=== PATIENT | male | born 1990 | race African-American/Black ===

== ENCOUNTER 2017-09-13 15:11 | Emergency (ER) | payer BC, MEDICAID ==
[2017-09-13 15:18] VITALS: BP 109/55
[2017-09-13] MEDS ORDERED: PROCHLORPERAZINE EDISYLATE INJ 10 MG/2 ML VIAL IV ONE (15:39)
[2017-09-13] MEDS ORDERED: KETOROLAC TROMETHAMINE INJ/PF 30 MG/1 ML SDV IV ONE (15:39)
[2017-09-13] MEDS ORDERED: DIPHENHYDRAMINE HCL 50 MG/ML VIAL IV ONE (15:39)
[2017-09-13] MEDS ORDERED: ONDANSETRON 4 MG TAB.RAPDIS PO ONE (15:40)
--- NOTE | 2017-09-13 15:46 | ER Document Report ---
ED Medical Screen (RME) - General Chief Complaint: Sinus Pain Stated Complaint: NAUSEA, HEADACHE Time Seen by Provider: 09/13/17 15:39 TRAVEL OUTSIDE OF THE [place] IN LAST 30 DAYS: No - HPI Notes: 09/13/17 15:40 Patient is a 26-year-old male with a history of recurrent sinusitis who presents to the ED complaining of frontal and maxillary sinus pressure, nasal congestion/discharge, sinus headache times several days. Patient states that his sinus issues have exacerbated his migraine. Patient states that he has light sensitivity and nausea associated. Patient states that he has a history of migraines and that this feels like a another migraine for him with the added sinus pressure. Patient is still eating and drinking without any difficulties, and urinating and having normal bowel movements. He has used several over-the- counter meds including nasal saline with minimal relief. Patient states that he feels the pressure in his sinuses when he walks, turns his head, or bends forward. Patient states that this is the eighth time he has had sinusitis this year. Patient has not been evaluated by ENT this year when he was symptomatic so nothing was done per patient. 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 He denies any drug allergies or other significant past medical history. Denies any headache, fever, head injury , neck pain, sore throat, chest pain, palpitations, syncope, cough, shortness of breath, wheeze, dyspnea, abdominal pain, nausea/vomiting/diarrhea, urinary retention, dysuria, hematuria, loss of control of bowel or bladder, numbness/ tingling, muscle paralysis/weakness, or rash. I have treated and performed a rapid initial assessment of this patient. A comprehensive ED assessment and evaluation of the patient, analysis of test results and completion of medical decision making process will be conducted by additional ED providers. - Related Data Allergies/Adverse Reactions: No Known Allergies Allergy (Verified 09/13/17 15:11) Past Medical History - Immunizations Hx Diphtheria, Pertussis, Tetanus Vaccination: Yes Physical Exam - Vital signs Vitals: Temp Pulse Resp BP Pulse Ox 98.5 F 80 16 109/55 L 100 09/13/17 15:16 09/13/17 15:16 09/13/17 15:16 09/13/17 15:16 09/13/17 15:16 - HEENT Head: Normocephalic Eyes: Normal Conjunctiva: Normal Extraocular movements intact: Yes Pupils: PERRL Sinus: Swelling - mild b/l, Tenderness - maxillary and frontal Nasal: Other - clear to yellow Pharynx: Normal Neck: Normal - Respiratory Respiratory status: No respiratory distress Breath sounds: Normal - Cardiovascular Rhythm: Regular Heart sounds: Normal auscultation Course - Vital Signs Vital signs: Temp Pulse Resp BP Pulse Ox 98.5 F 80 16 109/55 L 100 09/13/17 15:16 09/13/17 15:16 09/13/17 15:16 09/13/17 15:16 09/13/17 15:16
[2017-09-13] MEDS ORDERED: KETOROLAC TROMETHAMINE INJ/PF 30 MG/1 ML SDV IM ONE (16:18)
--- NOTE | 2017-09-13 16:21 | ER Document Report ---
HPI - HPI Pain Level: 4 Notes: Patient is a 26-year-old male with a history of recurrent sinusitis who presents to the ED complaining of frontal and maxillary sinus pressure, nasal congestion/discharge, sinus headache times several days. Patient states that his sinus issues have exacerbated his migraine. Patient states that he has light sensitivity and nausea associated. Patient states that he has a history of migraines and that this feels like a another migraine for him with the added sinus pressure. Patient is still eating and drinking without any difficulties, and urinating and having normal bowel movements. He has used several over-the- counter meds including nasal saline with minimal relief. Patient states that he feels the pressure in his sinuses when he walks, turns his head, or bends forward. Patient states that this is the eighth time he has had sinusitis this year. Patient has not been evaluated by ENT this year when he was symptomatic so nothing was done per patient. 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 He denies any drug allergies or other significant past medical history. Denies any headache, fever, head injury , neck pain, sore throat, chest pain, palpitations, syncope, cough, shortness of breath, wheeze, dyspnea, abdominal pain, nausea/vomiting/diarrhea, urinary retention, dysuria, hematuria, loss of control of bowel or bladder, numbness/ tingling, muscle paralysis/weakness, or rash. - ROS Systems Reviewed and Negative: Yes All other systems reviewed and negative Past Medical History - Social History Smoking Status: Never Smoker Family History: Reviewed & Not Pertinent - Immunizations Hx Diphtheria, Pertussis, Tetanus Vaccination: Yes Vertical Provider Document - CONSTITUTIONAL Agree With Documented VS: Yes Notes: PHYSICAL EXAMINATION: GENERAL: Well-appearing, well-nourished and in no acute distress. A&Ox4. Answers questions appropriately. HEAD: Atraumatic, normocephalic. EYES: Pupils equal round and reactive to light, extraocular movements intact, sclera anicteric, conjunctiva are normal. ENT: EAC clear b/l. TM's intact b/l without erythema, fluid, or perforation. Nares patent and with clear/yellow discharge. oropharynx mild erythema without exudates. No tonsilar hypertrophy & without erythema or exudate. No palatine shift. Uvula midline. No tongue protrusion. No drooling, hoarseness, or airway compromise. Moist mucous membranes. + maxillary and frontal sinus tenderness. + illumination test. NECK: Normal range of motion, supple without lymphadenopathy. No rigidity/ meningismus. LUNGS: Breath sounds clear to auscultation bilaterally and equal. No wheezes rales or rhonchi. HEART: Regular rate and rhythm without murmurs, rubs, gallops. NEUROLOGICAL: MMSE intact. GCS 15. NIH 0. LAURA's intact. Pronator drift negative. Normal speech, normal gait. Normal sensory, motor exams PSYCH: Normal mood, normal affect. SKIN: Warm, Dry, normal turgor, no rashes or lesions noted. - INFECTION CONTROL TRAVEL OUTSIDE OF THE [place] IN LAST 30 DAYS: No - RESPIRATORY O2 Sat by Pulse Oximetry: 100 Course - Re-evaluation Re-evalutation: 09/13/17 16:19 Patient is an afebrile, well-hydrated, 18-year-old male who presents the ED with acute sinusitis as well as migraine. Vitals are stable. PE is otherwise unremarkable for any focal neurological deficits. Patient states that this migraine is typical of his past and previous migraines. Patient has an extensive sinus history and physical exam findings consistent with a probable bacterial sinusitis. Patient declined migraine cocktail today. Toradol given IM along with Zofran. I will send him home with another prescription for Zofran for recurrence of nausea as well as naproxen. Patient instructed that he may take Benadryl when he gets home as well. Low suspicion for any acute glaucoma, temporal arteritis, meningitis, intracranial hemorrhage, ischemic stroke, or fracture at this time. Patient is aware that his condition can change from initial presentation and that he needs to monitor symptoms closely for any acute changes. I will also send him home with a prescription for Augmentin to take as directed. Conservative measures otherwise for symptoms. Recheck with your PCM in 3-5 days. Return to the ED with any worsening/ concerning symptoms otherwise as reviewed discharge. Patient is in agreement. - Vital Signs Vital signs: Temp Pulse Resp BP Pulse Ox 98.5 F 80 16 109/55 L 100 09/13/17 15:16 09/13/17 15:16 09/13/17 15:16 09/13/17 15:16 09/13/17 15:16 Discharge - Discharge Clinical Impression: Acute sinusitis Qualifiers: Sinusitis location: maxillary Recurrence: recurrent Qualified Code(s): J01.01 - Acute recurrent maxillary sinusitis Headache Qualifiers: Headache type: unspecified Headache chronicity pattern: acute headache Intractability: not intractable Qualified Code(s): R51 - Headache Condition: Stable Disposition: HOME, SELF-CARE Instructions: Headache ([facility]), Migraine Headache ([facility]), Sinusitis ([facility]), Augmentin ([facility]) Additional Instructions: Maintain adequate fluid intake Take benadryl 50mg when you get home Take meds as directed tylenol/ibuprofen as needed over the counter cold medication as needed for symptoms Humidified air may help F/u: with your PCM in 3-5 days for a recheck Consider consult with a Neurologist Return to the ED with any fever, worsening pain, chest pain, palpitations, syncope, worsening HENRIQUEZ, neck pain/stiffness, shortness of breath, wheezing, drooling, trouble swallowing/breathing, abdominal pain, n/v/d, rash, or worsening/concerning symptoms otherwise. Prescriptions: Amox Tr/Potassium Clavulanate [Augmentin 875-125 Tablet] 1 tab PO BID 10 Days # 20 tablet Ondansetron [Zofran Odt 4 mg Tablet] 1 - 2 tab PO Q4H PRN #15 tab.rapdis PRN Reason: For Nausea/Vomiting Referrals: SULMA HOUSE MD [ACTIVE STAFF] - Follow up as needed
== END 2017-09-13 16:36 | disposition home or self-care (01) ==
LOC: ER 15:11
DX: J01.01 Acute recurrent maxillary sinusitis (principal); G43.909 Migraine, unspecified, not intractable, without status migrainosus; H53.149 Visual discomfort, unspecified; R11.0 Nausea; Z98.890 Other specified postprocedural states
CPT/HCPCS: 99283; S0119; J1885

== ENCOUNTER → 2018-09-08 | Outpatient (CLI) | payer OTHER ==
--- NOTE | 2018-09-09 08:56 | RADIOLOGY REPORT (SQ) ---
EXAM DESCRIPTION: CT SINUSES FOR ENT COMPLETED DATE/TIME: 09/08/2018 6:28 pm REASON FOR STUDY: CHRONIC SINUSITIS J32.9 CHRONIC SINUSITIS, UNSPECIFIED COMPARISON: None. TECHNIQUE: Noncontrast scanning through the paranasal sinuses using bone algorithm. Reconstructed MPR images reviewed. All images stored on PACS. Images acquired for image guided surgery. All CT scanners at this facility use dose modulation, iterative reconstruction, and/or weight based d osing when appropriate to reduce radiation dose to as low as reasonably achievable (ALARA). [facility]: Dose Right [facility]: CareDose [facility]: Dose Right [facility]: Teradose 4D [facility]: Qubrit RADIATION DOSE: 47 mGy. FINDINGS: NASAL PASSAGES: There is mild rightward nasal septal deviation and a moderate size right n shabnam septal spur, 7 mm in greatest transverse dimension. This is best shown on coronal reconstructio n image 96/387. There is nodular mucous membrane thickening along the anterior aspect of the left mi ddle turbinate, mucous membrane thickening measures 7 mm in thickness on axial images 36-43. OSTEOMEATAL UNITS AND MAXILLARY SINUSES: On the right side, the maxillary sinus outlet is narrowed by mucous membrane thickening and right-sided Anuja cells. This is best shown on coronal reconstructi on images 95 through 114. On the left side, there has been surgical widening of the maxillary outlet, and resection of the left mid ethmoid septa. Minimal mucous membrane thickening is present along th e roof of the left maxillary sinus. NASOFRONTAL DUCTS: Patent. ETHMOID SINUSES: Well-pneumatized and clear. On the left side, there is been prior endoscopic sinus surgery with resection of the mid ethmoid septa. SPHENOID SINUSES: Well-pneumatized and clear. No sphenoethmoid air cells or pneumatized pterygoid rec ess. No pneumatized dorsal sella. FRONTAL SINUSES: Well pneumatized. Mucous membrane thickening right fronto ethmoid junction. MASTOID AIR CELLS: Clear. ORBITS: Normal and symmetrical. TEMPOROMANDIBULAR JOINTS: Normal. TURBINATES: Pneumatized right middle turbinate. MUCOPERIOSTEAL THICKENING: No. MUCOCELE: No. OTHER: No other significant findings. IMPRESSION: Prior endoscopic sinus surgery with nodular mucous membrane thickening along the anterio r aspect of the left middle turbinate TECHNICAL DOCUMENTATION: JOB ID: [id number] Quality ID # [id number]: Final reports with documentation of one or more dose reduction techniques (e.g., Au tomated exposure control, adjustment of the mA and/or kV according to patient size, use of iterative reconstruction technique) 2010 [employer]- All Rights Reserved Reading location - IP/workstation name: [email or web address]
== END ==
LOC: RAD 17:32
PROVIDERS: ATTEND Otolaryngology
DX: J32.9 Chronic sinusitis, unspecified (principal)
CPT/HCPCS: 70486

== ENCOUNTER 2018-10-06 09:52 | Emergency (ER) | payer OTHER, MEDICAID ==
[2018-10-06] MEDS ORDERED: KETOROLAC TROMETHAMINE INJ/PF 30 MG/1 ML SDV IV ONE (10:21)
[2018-10-06] MEDS ORDERED: DIAZEPAM 5 MG TABLET PO ONE (10:22)
--- NOTE | 2018-10-06 10:24 | ER Document Report ---
ED Medical Screen (RME) - General Chief Complaint: Flank Pain Stated Complaint: ABDOMINAL PAIN Time Seen by Provider: 10/06/18 10:18 Primary Care Provider: OLGA FERRO MD [Primary Care Provider] - Follow up as needed Notes: Chief complaint: Right flank pain History of complain:( obtained from----patient) 28 years old male presents today with right flank pain since last night. Pain was radiating towards the groin. Any movement of the body increases the pain. Standing and bend over somewhat helps with the pain. Denies any hematuria dysuria frequency or urgency. Last Wednesday he had a temperature only one time. Since then did not have any fever chills nausea vomiting. PHYSICAL EXAMINATION: GENERAL: Moderate discomfort acute distress. HEAD: Atraumatic, normocephalic. EYES: Pupils equal round and reactive to light, extraocular movements intact, conjunctiva are normal. ENT: Nares patent, oropharynx clear without exudates. Moist mucous membranes. NECK: Normal range of motion, supple without lymphadenopathy LUNGS: Breath sounds clear to auscultation bilaterally and equal. No wheezes rales or rhonchi. HEART: Regular rate and rhythm without murmurs ABDOMEN: Soft, right lower quadrant tenderness noted , nondistended abdomen. No guarding, no rebound. No masses appreciated. Examination of genitals-deferred Musculoskeletal: Sharp muscular tenderness noted over the right flank, NEUROLOGICAL: Cranial nerves grossly intact. Normal speech, normal gait. Normal sensory, motor exams PSYCH: Normal mood, normal affect. SKIN: Warm, Dry, normal turgor, no rashes or lesions noted. Dictation was performed using [employer] voice recognition software TRAVEL OUTSIDE OF THE [place] IN LAST 30 DAYS: No - Related Data Allergies/Adverse Reactions: No Known Allergies Allergy (Verified 10/06/18 09:53) Past Medical History - Immunizations Hx Diphtheria, Pertussis, Tetanus Vaccination: Yes Physical Exam - Vital signs Vitals: Temp Pulse Resp BP Pulse Ox 98.8 F 96 19 130/77 H 95 10/06/18 09:56 10/06/18 09:56 10/06/18 09:56 10/06/18 09:56 10/06/18 09:56 Course - Vital Signs Vital signs: Temp Pulse Resp BP Pulse Ox 98.8 F 96 19 130/77 H 95 10/06/18 09:56 10/06/18 09:56 10/06/18 09:56 10/06/18 09:56 10/06/18 09:56 Doctor's Discharge - Discharge Referrals: OLGA FERRO MD [Primary Care Provider] - Follow up as needed
[2018-10-06 11:18] LABS: ABSOLUTE BASOPHILS # (AUTO) 0.1 10^3/uL (0.0-0.2); ABSOLUTE EOSINOPHILS # (AUTO) 0.1 10^3/uL (0.0-0.6); ABSOLUTE LYMPHOCYTES (AUTO) 1.7 10^3/uL (0.5-4.7); ABSOLUTE MONOCYTES (AUTO) 0.7 10^3/uL (0.1-1.4); ABSOLUTE NEUT (AUTO) 7.4 10^3/uL (1.7-8.2); BASOPHILS % (AUTO) 0.7 % (0-2); EOSINOPHILS % (AUTO) 1.3 % (0-6); HEMOGLOBIN 15.4 g/dL (13.5-17.0); LYMPHOCYTES % (AUTO) 16.8 % (13-45); MEAN CORPUSCULAR HEMOGLOBIN 31.2 pg (27.0-33.4); MEAN CORPUSCULAR HGB CONC 35.7 g/dL (32.0-36.0); MEAN CORPUSCULAR VOLUME 87 fl (80-97); MONOCYTES % (AUTO) 6.7 % (3-13); PLATELET COUNT 322 10^3/uL (150-450); RED BLOOD COUNT 4.92 10^6/uL (4.35-5.55); RED CELL DISTRIBUTION WIDTH 13.1 % (11.5-14.0); SEGMENTED NEUTROPHILS % (AUTO) 74.5 % (42-78); TOTAL CELLS COUNTED % (AUTO) 100 %; WHITE BLOOD COUNT 9.9 10^3/uL (4.0-10.5)
[2018-10-06 11:27] LABS: APPEARANCE,URINE SLIGHTLY-CLOUDY; BILIRUBIN,URINE NEGATIVE (NEGATIVE); COLOR,URINE STRAW; GLUCOSE, URINE NEGATIVE (NEGATIVE); KETONES,URINE NEGATIVE (NEGATIVE); LEUKOCYTE ESTERASE,URINE LARGE (NEGATIVE); NITRITE,URINE NEGATIVE (NEGATIVE); PROTEIN,URINE NEGATIVE (NEGATIVE); URINE SPECIFIC GRAVITY 1.004; UROBILINOGEN,URINE NEGATIVE mg/dL (<2.0)
[2018-10-06 11:35] LABS: ALANINE AMINOTRANSFERASE 139 U/L (21-72); ALKALINE PHOSPHATASE 126 U/L (38-126); ASPARTATE AMINO TRANSFERASE 75 U/L (17-59); BILIRUBIN,DIRECT 0.1 mg/dL (0.0-0.4); BILIRUBIN,TOTAL 0.6 mg/dL (0.2-1.3); BLOOD UREA NITROGEN 4 mg/dL (7-20); CARBON DIOXIDE 29 mmol/L (22-30); GLUCOSE 89 mg/dL (75-110); NEONATAL BILIRUBIN RESULT 0.5 mg/dL (0.1-1.1); POTASSIUM 4.4 mmol/L (3.6-5.0); TOTAL PROTEIN 8.2 g/dL (6.3-8.2)
[2018-10-06 11:37] LABS: ANION GAP 11 (5-19); CHLORIDE 101 mmol/L (98-107); SODIUM 140.8 mmol/L (137-145)
--- NOTE | 2018-10-06 11:49 | RADIOLOGY REPORT (SQ) ---
EXAM DESCRIPTION: CT ABD/PELVIS WITH IV ONLY COMPLETED DATE/TIME: 10/06/2018 11:23 am REASON FOR STUDY: Flank pain COMPARISON: None. TECHNIQUE: CT scan of the abdomen and pelvis performed using helical scanning technique with dynamic intravenous contrast injection. No oral contrast. Images reviewed with lung, soft tissue, and bone windows. Reconstructed coronal and sagittal MPR images reviewed. Delayed images for evaluation of the urinary system also acquired. All images stored on PACS. All CT scanners at this facility use dose modulation, iterative reconstruction, and/or weight based d osing when appropriate to reduce radiation dose to as low as reasonably achievable (ALARA). [facility]: Dose Right [facility]: CareDose [facility]: Dose Right [facility]: Teradose 4D [facility]: Prenova CONTRAST TYPE AND DOSE: contrast/concentration: Isovue 350.00 mg/ml; Total Contrast Delivered: 100.0 ml; Total Saline Delivered: 70.0 ml RENAL FUNCTION: None required. The patient is less than 50 years old. RADIATION DOSE: CT Rad equipment meets quality standard of care and radiation dose reduction techniq ues were employed. CTDIvol: 6.4 - 8.9 mGy. DLP: 846 mGy-cm.. LIMITATIONS: None. FINDINGS: LOWER CHEST: No significant findings. No nodules or infiltrates. LIVER: Normal size. No masses. No dilated ducts. SPLEEN: Normal size. No focal lesions. PANCREAS: No masses. No significant calcifications. No adjacent inflammation or peripancreatic fluid collections. Pancreatic duct not dilated. GALLBLADDER: No identified stones by CT criteria. No inflammatory changes to suggest cholecystitis. ADRENAL GLANDS: No significant masses or asymmetry. RIGHT KIDNEY AND URETER: No solid masses. No significant calcifications. No hydronephrosis or hyd roureter. LEFT KIDNEY AND URETER: No solid masses. No significant calcifications. No hydronephrosis or hydr oureter. AORTA AND VESSELS: No aneurysm. No dissection. Renal arteries, SMA, celiac without stenosis. RETROPERITONEUM: No retroperitoneal adenopathy, hemorrhage or masses. BOWEL AND PERITONEAL CAVITY: No masses or inflammatory changes. No free fluid or peritoneal masses. APPENDIX: Normal. PELVIS: No mass. No free fluid. Normal bladder. ABDOMINAL WALL: No masses. No hernias. BONES: No significant or acute findings. OTHER: No other significant finding. IMPRESSION: NO SIGNIFICANT OR ACUTE FINDING IN THE ABDOMEN OR PELVIS ON CT SCAN WITH IV CONTRAST. TECHNICAL DOCUMENTATION: JOB ID: [id number] Quality ID # [id number]: Final reports with documentation of one or more dose reduction techniques (e.g., Au tomated exposure control, adjustment of the mA and/or kV according to patient size, use of iterative reconstruction technique) 2010 [employer]- All Rights Reserved Reading location - IP/workstation name: [email or web address]
[2018-10-06] MEDS ORDERED: CEFTRIAXONE 1 GM/D5W RTU 1 GM/50 ML RTUPB IV ONE (11:57)
[2018-10-06] MEDS ORDERED: DOXYCYCLINE HYCLATE 100 MG TABLET PO ONE (11:58)
--- NOTE | 2018-10-06 12:35 | ER Document Report ---
ED General - General Chief Complaint: Flank Pain Stated Complaint: ABDOMINAL PAIN Time Seen by Provider: 10/06/18 10:18 Primary Care Provider: OLGA FERRO MD [ACTIVE STAFF] - Follow up as needed TRAVEL OUTSIDE OF THE [place] IN LAST 30 DAYS: No - HPI Patient complains to provider of: Lower abdominal pain flank pain Notes: Patient states approximate 24-48 hours ago the patient was having intercourse with his when the condom that he was using broke patient pulled out before he ejaculated held onto his penis afterwards experienced intense pain while holding his penis during the ejaculation in the suprapubic lower abdominal region and continues to have pain. Patient denies any dysuria denies any drainage from his penis. Patient denies any pain in his testicles denies any fevers chills nausea vomiting today but does state approximately 2 days ago after this occurred patient did feel weak with no energy. Patient resting healthy upon my evaluation. - Related Data Allergies/Adverse Reactions: No Known Allergies Allergy (Verified 10/06/18 09:53) Past Medical History - Social History Smoking Status: Current Every Day Smoker Chew tobacco use (# tins/day): No Frequency of alcohol use: None Drug Abuse: None Family History: Reviewed & Not Pertinent Patient has suicidal ideation: No Patient has homicidal ideation: No Renal/ Medical History: Denies: Hx Peritoneal Dialysis - Immunizations Hx Diphtheria, Pertussis, Tetanus Vaccination: Yes Review of Systems - Review of Systems Constitutional: No symptoms reported EENT: No symptoms reported Cardiovascular: No symptoms reported Respiratory: No symptoms reported Gastrointestinal: Abdominal pain Genitourinary: No symptoms reported Male Genitourinary: No symptoms reported Musculoskeletal: No symptoms reported Skin: No symptoms reported Hematologic/Lymphatic: No symptoms reported Neurological/Psychological: No symptoms reported -: Yes All other systems reviewed and negative Physical Exam - Vital signs Vitals: Temp Pulse Resp BP Pulse Ox 98.8 F 96 19 130/77 H 95 10/06/18 09:56 10/06/18 09:56 10/06/18 09:56 10/06/18 09:56 10/06/18 09:56 Interpretation: Normal - General General appearance: Appears well, Alert - HEENT Head: Normocephalic, Atraumatic Eyes: Normal Pupils: PERRL - Respiratory Respiratory status: No respiratory distress Chest status: Nontender Breath sounds: Normal Chest palpation: Normal - Cardiovascular Rhythm: Regular Heart sounds: Normal auscultation Murmur: No - Abdominal Inspection: Normal Distension: No distension Bowel sounds: Normal Tenderness: Nontender Organomegaly: No organomegaly - Back Back: Normal, Nontender - Extremities General upper extremity: Normal inspection, Nontender, Normal color, Normal ROM, Normal temperature General lower extremity: Normal inspection, Nontender, Normal color, Normal ROM, Normal temperature, Normal weight bearing. No: Scout's sign - Neurological Neuro grossly intact: Yes Cognition: Normal Orientation: AAOx4 Kandace Coma Scale Eye Opening: Spontaneous [place] Coma Scale Verbal: Oriented Kandace Coma Scale Motor: Obeys Commands Kandace Coma Scale Total: 15 Speech: Normal Motor strength normal: LUE, RUE, LLE, RLE Sensory: Normal - Psychological Associated symptoms: Normal affect, Normal mood - Skin Skin Temperature: Warm Skin Moisture: Dry Skin Color: Normal Course - Re-evaluation Re-evalutation: 10/06/18 15:02 Physical examination is not revealing critical pathology. Patient underwent CT scan that was otherwise negative. Urinalysis does show signs concerning for possible infection. Patient was given a dose of Rocephin here patient was started on doxycycline did explain to the patient possible prostatitis versus urinary tract infection patient was offered STD testing however states he is a monogamous relationship and is not concerned for any STDs at this time declined testing - Vital Signs Vital signs: Temp Pulse Resp BP Pulse Ox 98.9 F 89 18 130/80 H 99 10/06/18 12:53 10/06/18 12:53 10/06/18 12:53 10/06/18 12:53 10/06/18 12:53 - Laboratory Result Diagrams: 10/06/18 10:52 10/06/18 10:52 Laboratory results interpreted by me: 10/06/18 10/06/18 10:52 10:52 BUN 4 L AST 75 H ALT 139 H Urine Blood LARGE H Ur Leukocyte Esterase LARGE H Discharge - Discharge Clinical Impression: UTI (urinary tract infection) Qualifiers: Urinary tract infection type: site unspecified Hematuria presence: with hematuria Qualified Code(s): N39.0 - Urinary tract infection, site not specified Disposition: HOME, SELF-CARE Instructions: Doxycycline ([facility]), Urinary Tract Infection ([facility]) Additional Instructions: Your evaluation today shows signs of urinary tract infection your CAT scan is otherwise negative for any signs of acute surgical pathology such as appendicitis or acute cholecystitis. I highly recommend sticking with a bland diet please take the antibiotics as prescribed return to the ER if symptoms worsen he may take the Zofran for any nausea that she may have Tylenol Motrin for pain. Prescriptions: Doxycycline Hyclate 100 mg PO BID #20 capsule Ondansetron [Zofran Odt 4 mg Tablet] 1 - 2 tab PO Q4H PRN #30 tab.rapdis PRN Reason: For Nausea/Vomiting Forms: Return to Work Referrals: OLGA FERRO MD [ACTIVE STAFF] - Follow up as needed
[2018-10-06 12:55] VITALS: BP 130/80
[2018-10-07] MEDS ORDERED: DILTIAZEM HCL/D5W 125 MG/125 ML RTUINJ IV PRN (01:14)
== END 2018-10-06 12:55 | disposition home or self-care (01) ==
LOC: ER 09:52
DX: N39.0 Urinary tract infection, site not specified (principal); R31.9 Hematuria, unspecified; R10.30 Lower abdominal pain, unspecified; F17.200 Nicotine dependence, unspecified, uncomplicated
CPT/HCPCS: 99284; 96375; 96365; 36415; 85025; 80053; 81001; 74177; J1885; J0696

== ENCOUNTER → 2018-10-17 | Outpatient (CLI) | payer OTHER, MEDICAID | LOC: OD 12:58 | PROVIDERS: ATTEND Otolaryngology | DX: R09.82 Postnasal drip (principal) | CPT/HCPCS: 36415; 82785; 86003 ==

== ENCOUNTER 2018-10-29 16:22 | Emergency (ER) | payer OTHER, MEDICAID ==
[2018-10-29] MEDS ORDERED: DIPH/PERTUSS(ACELL)/TETANUS VAC/PF 0.5 ML SYR (>=10YO) IM ONE (16:57)
[2018-10-29] MEDS ORDERED: IBUPROFEN 800 MG TABLET PO ONE (16:57)
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
[2018-10-29 19:45] VITALS: BP 129/76
== END 2018-10-29 19:35 | disposition home or self-care (01) ==
LOC: ER 16:22
DX: S63.602A Unspecified sprain of left thumb, initial encounter (principal); S73.102A Unspecified sprain of left hip, initial encounter; S16.1XXA Strain of muscle, fascia and tendon at neck level, initial encounter; S39.012A Strain of muscle, fascia and tendon of lower back, initial encounter; S50.812A Abrasion of left forearm, initial encounter; M25.542 Pain in joints of left hand; M25.552 Pain in left hip; M54.2 Cervicalgia; M26.622 Arthralgia of left temporomandibular joint; V43.52XA Car driver injured in collision with other type car in traffic accident, initial encounter; F17.200 Nicotine dependence, unspecified, uncomplicated
CPT/HCPCS: 70486; 72070; 72110; 72125; 99284

== ENCOUNTER 2018-10-29 22:20 | Emergency (ER) | payer OTHER, MEDICAID ==
[2018-10-30] MEDS ORDERED: ONDANSETRON ODT 4 MG TAB (6 TAB/ER DISP) PO PRN (00:46)
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
[2018-10-30 01:16] VITALS: BP 116/80
== END 2018-10-30 01:15 | disposition home or self-care (01) ==
LOC: ER 22:20
DX: S06.0X0A Concussion without loss of consciousness, initial encounter (principal); V49.60XA Unspecified car occupant injured in collision with unspecified motor vehicles in traffic accident, initial encounter; R42 Dizziness and giddiness; R11.0 Nausea; R51 Headache; H53.149 Visual discomfort, unspecified
CPT/HCPCS: 99283

== ENCOUNTER → 2018-12-08 | Outpatient (CLI) | payer OTHER ==
--- NOTE | 2018-12-09 08:28 | RADIOLOGY REPORT (SQ) ---
EXAM DESCRIPTION: CT SINUSES FOR ENT COMPLETED DATE/TIME: 12/08/2018 5:00 pm REASON FOR STUDY: J32.9 CHRONIC SINUSITIS, UNSPECIFIED J32.9 CHRONIC SINUSITIS, UNSPECIFIED COMPARISON: CT facial bones 10/29/2018 TECHNIQUE: Noncontrast scanning through the paranasal sinuses using bone algorithm. Reconstructed MPR images reviewed. All images stored on PACS. Images acquired for image guided surgery. All CT scanners at this facility use dose modulation, iterative reconstruction, and/or weight based d osing when appropriate to reduce radiation dose to as low as reasonably achievable (ALARA). [facility]: Dose Right [facility]: CareDose [facility]: Dose Right [facility]: Teradose 4D [facility]: [place] RADIATION DOSE: 47 mGy. FINDINGS: NASAL PASSAGES: Clear. No polyps or masses. OSTEOMEATAL UNITS AND NASOFRONTAL DUCTS: On the right side, the maxillary sinus outlet is narrowed by right rib nasal septal deviation and a small right Anuja cell best shown on coronal reconstruction image 19. There is mucous membrane thickening without occlusion. On the left side, patient has had endoscopic sinus surgery with resection of the ostiomeatal complex mid ethmoid air cells. No agger na si cells. MAXILLARY SINUSES: Well-pneumatized and clear. Maxillary sinus outlets are patent. ETHMOID SINUSES: Well-pneumatized and clear. SPHENOID SINUSES: Well-pneumatized and clear. No sphenoethmoid air cells or pneumatized pterygoid rec ess. No pneumatized dorsal sella. FRONTAL SINUSES: Well-pneumatized and clear. MASTOID AIR CELLS: Clear. ORBITS: Normal and symmetrical. NASAL SEPTUM: Rightward nasal septal deviation with small rightward nasal septal spur TEMPOROMANDIBULAR JOINTS: Normal. TURBINATES: No pneumatized turbinates. MUCOPERIOSTEAL THICKENING: No. MUCOCELE: No. OTHER: There is pneumatization of the right petrous apex IMPRESSION: NO EVIDENCE OF ACUTE SINUSITIS. TECHNICAL DOCUMENTATION: JOB ID: [id number] Quality ID # [id number]: Final reports with documentation of one or more dose reduction techniques (e.g., Au tomated exposure control, adjustment of the mA and/or kV according to patient size, use of iterative reconstruction technique) 2010 [employer]- All Rights Reserved Reading location - IP/workstation name: [facility]
== END ==
LOC: RAD 16:08
PROVIDERS: ATTEND Otolaryngology
DX: J32.9 Chronic sinusitis, unspecified (principal); J34.2 Deviated nasal septum; M77.8 Other enthesopathies, not elsewhere classified
CPT/HCPCS: 70486

== ENCOUNTER 2019-01-30 07:43 | Day surgery (SDC) | payer MEDICAID, OTHER ==
[~2019-01-30 07:43] MED LIST: CEFAZOLIN 2 GM/D5W RTU 2 GM/50 ML RTUPB IV PRN; LACTATED RINGERS 1000 ML IV PRN; LIDOCAINE 0.5% INJ-PF (5 MG/ML) 50 ML SDV SUBCUT PRN
[2019-01-30] MEDS ORDERED: ONDANSETRON HCL INJ/PF 4 MG/2 ML SDV ONE (09:10)
[2019-01-30] MEDS ORDERED: MIDAZOLAM 2 MG/2 ML INJ ONE (09:11)
[2019-01-30] MEDS ORDERED: PROPOFOL INJ 200 MG/20 ML VIAL IV ONE (09:11)
[2019-01-30] MEDS ORDERED: DEXAMETHASONE SOD PHOS INJ 10 MG/1 ML VIAL ONE (09:11)
[2019-01-30] MEDS ORDERED: FENTANYL CITRATE INJ/PF 250 MCG/5 ML AMPULE ONE (09:11)
[2019-01-30] MEDS ORDERED: MORPHINE SULFATE 10 MG/ML INJ ONE (09:11)
[2019-01-30] MEDS ORDERED: SUCCINYLCHOLINE CHLORIDE INJ 200 MG/10 ML VIAL ONE (09:12)
[2019-01-30] MEDS ORDERED: ROCURONIUM BROMIDE INJ 50 MG/5 ML VIAL IV ONE (09:12)
[2019-01-30] MEDS ORDERED: BUPIVACAINE HCL 0.5%-EPI 1:200000 INJ/PF 30 ML VIAL ONE (09:18)
[2019-01-30] MEDS ORDERED: BUPIVACAINE HCL 0.5%/EPI 1:200000 INJ 1.8 ML CARTRIDGE ONE (09:19)
[2019-01-30] MEDS ORDERED: MINERAL OIL (STERILE) 10 ML VIAL ONE (09:22)
[2019-01-30] MEDS ORDERED: SCOPOLAMINE HYDROBROMIDE 1.5 MG PATCH.TD72 TD ONE (09:30)
[2019-01-30] MEDS: OXYMETAZOLINE HCL 0.05% NASAL SPRAY 15 ML BOTTLE ONE ×3 (10:16→11:15)
--- NOTE | 2019-02-05 05:19 | SURGICARE OPERATIVE REPORT E ---
[facility] Operative Report NAME: ANITA MACK AGE: 28Y DATE OF SURGERY: 01/30/2010 ROOM: PREOPERATIVE DIAGNOSES: 1. CHRONIC RHINOSINUSITIS WITH NASAL POLYP DISEASE. 2. ACUTE RECURRENT SINUSITIS. 3. SINONASAL POLYP DISEASE. 4. NASAL SEPTAL DEVIATION. 5. BILATERAL CHRONIC EUSTACHIAN TUBE DYSFUNCTION. 6. SEPTAL SPUR. 7. MIDDLE TURBINATE HYPERTROPHY. 8. INFERIOR TURBINATE HYPERTROPHY. 9. RIGHT TOSHIA BULLOSA. POSTOPERATIVE DIAGNOSES: 1. CHRONIC RHINOSINUSITIS WITH NASAL POLYP DISEASE. 2. ACUTE RECURRENT SINUSITIS. 3. SINONASAL POLYP DISEASE. 4. NASAL SEPTAL DEVIATION. 5. BILATERAL CHRONIC EUSTACHIAN TUBE DYSFUNCTION. 6. SEPTAL SPUR. 7. MIDDLE TURBINATE HYPERTROPHY. 8. INFERIOR TURBINATE HYPERTROPHY. 9. RIGHT TOSHIA BULLOSA. OPERATION: 1. Image-guidance functional endoscopic sinus surgery as follows: 2. Right maxillary antrostomy with tissue removal for rule out polyp disease. 3. Right anterior ethmoidectomy with tissue removal for rule out polyp disease. 4. Left revision sinus surgery with sinonasal polyp removal from the left nasal passage, right maxillary antrostomy, and right anterior ethmoidectomy areas where previous sinus surgery had been performed. 5. Bilateral frontal sinus balloon sinuplasty, which was utilized prior to performing bilateral frontal sinus sinusotomies. 6. Bilateral sphenoid balloon sinuplasty. 7. Bilateral eustachian tube balloon plasty, which [place]; [place] [address], and to be associated with this is CPT code 90631, which was performed bilateral, and CPT code 09223 for bilateral transnasal rigid surgical endoscopy. 8. Right toshia bullosa reduction. 9. Left middle turbinate reduction. 10. Bilateral inferior turbinate reduction using a submucous resection technique. 11. Septoplasty. 12. Bilateral adenoid tissue and mathieu tissue ablation with suction electrocautery. SURGEON: ALEX PASTRANA D.O. ANESTHESIA: General endotracheal tube. ANESTHESIA STAFF: DENISHA Gardner ESTIMATED BLOOD LOSS: 100 mL FLUIDS: 900 mL COMPLICATIONS: None. DRAINS: None. SPONGE COUNT: Verified. MATERIALS FORWARDED SPECIMEN: Left and right maxillary and anterior ethmoid polyp tissue for rule out sinonasal polyp disease. FINDINGS: 1. Right nasal septal deviation involving bone and cartilage along with a very large septal spur. 2. Left middle turbinate hypertrophy with polypoid changes and polyps surrounding the left middle turbinate, OMC distribution, and polyp disease extension into the left maxillary antrostomy and left anterior ethmoidectomy distributions. 3. Right toshia bullosa. 4. Mathieu hypertrophy and adenoid tissue hypertrophy adjacent the mathieu. INDICATIONS: This is a 28-year-old -[place] male who was seen and evaluated in the [place] otolaryngology office. The patient had been referred for, and he complained of, a longstanding history of chronic rhinosinusitis and acute recurrent bacterial sinusitis episodes occurring each year, requiring antibiotic treatment over the years. The patient had previously undergone sinus surgery on the left consisting of maxillary and anterior ethmoid sinus surgery. However, over the years the patient's sinus disease difficulties have worsened. The patient had been referred for further ENT evaluation and upon CT sinus imaging and clinic flexible endoscopy, the patient was noted to be again with extensive sinonasal polyp disease. There was extensive discussion with the patient, who has again experienced difficult nasal airflow, decreased quality of life due to his sinonasal disease, and he again desires to undergo surgery to improve sinonasal function and gaining control of his polyp disease, as he continues to fail medical management. After extensive discussion with the patient, recommendation and plan was made for image-guidance, primary and revision functional endoscopic sinus surgery, septoplasty, bilateral eustachian tube balloon plasty, middle and inferior turbinate surgery, and removal of sinonasal polyps, all of which he voiced an understanding of and agreed with. The procedures and all of their risks and complications were all discussed in detail with the patient. He voiced an understanding, agreed to proceed, and consent was obtained. PROCEDURE: The patient was taken to the main operating room and placed on the operating room table in the supine position. Appropriate monitors were placed. Using mask and IV access, general anesthesia was induced. The patient was then prepped and positioned for sinonasal surgery. He underwent a nasal examination with injection of local anesthetic with epinephrine. Two Afrin-soaked neuro patties were placed per nasal passage. The patient was then prepped and draped in a sterile fashion for sinonasal surgery. The [employer] OTR image guidance system was set up and tested appropriately before beginning the case. The Afrin-soaked neuro patties were removed and the patient underwent a hemitransfixion incision with elevation of the mucoperichondrial and mucoperiosteal flaps without difficulty. The bony cartilaginous junction was identified and divided and the most deviated portions of the septal cartilage and bone were removed without difficulty. A V chisel was used to remove the large and extensive right septal spur. During this process, there was a right-sided mucosal rent. There was a greater than 1.5 x 1.5 cm cartilaginous L strut preserved. At this point, the 30-degree rigid endoscope was used in a transnasal surgical fashion along with the eustachian tube balloon system to pass the eustachian tube balloon into each eustachian tube, and the balloon was inflated to 12 atmospheres on each side and held in place for 2 minutes per side. Once complete, the eustachian tube balloon system was withdrawn. Due to the adenoid tissue hypertrophy and mathieu hypertrophy, the suction electrocautery unit was also used to perform adenoid tissue ablation and ablation of the cuff of the mathieu away from the actual eustachian tube openings. At this point, the turbinate bipolar wand was used to make 2 passes in each inferior turbinate followed by use of the [place] elevator to outfracture each inferior turbinate. Next, the turbinate microdebrider system at a setting of 1500 rpm was used to perform submucous resection on each side. At this point, the sinus surgery portion of the case was addressed in the following manner. There was bilateral transnasal rigid surgical endoscopy throughout this portion of the case, along with use of sinus surgical instruments and the microdebrider system at a setting of 3000 rpm were used to debulk the left-sided sinonasal polyp disease. Once complete, the previously established left maxillary antrostomy and left anterior ethmoidectomy appeared stable and essentially unremarkable and patent. The left middle turbinate was debulked along with the anterior portion resected. A straight Coni clamp had been used first to create controlled fractures in the left middle turbinate prior to working on it. Attention was turned to the right sinonasal distribution. A straight Coni clamp was used to create controlled fractures and reduce the right toshia bullosa. Next, the anterior portion was removed of the right toshia bullosa/middle turbinate. The uncinate process was mobilized and removed followed by performing the right maxillary antrostomy without difficulty. The right anterior ethmoidectomy was completed. At this point, the frontal sinus balloon sinuplasty system, that was a [employer] Fusion image guidance balloon system, was passed on the left and right side and inflated to 12 atmospheres. Once complete, the sinus frontal recess area was evaluated and there was questionable patency. At this point, formal frontal sinus sinusotomies were performed with frontal sinus instrumentation without difficulty. There was reasonable patency noted on each side. At this point, the sphenoid [employer] Fusion image guidance balloon system was used to perform bilateral sphenoid sinus balloon sinuplasty. Once complete, the sphenoid balloon system was withdrawn. At this point, the nose was thoroughly irrigated and suctioned. There was 5-0 chromic suture used to repair the right mucosal rent without difficulty. Previously removed septal cartilage was placed back between the mucosal flaps to be banked. The flaps were brought back in the midline and the hemitransfixion incision was reapproximated with 5-0 chromic suture. At this point, the patient had 1 modified Merocel pack placed per side and a right modified Mckeon splint placed, and these were all secured at the caudal aspect with 4-0 Prolene suture. The patient's nose was then cleaned and dried and he was returned to the Anesthesia staff and allowed to emerge from general anesthesia. The patient was extubated in the main operating room and was then transported to the postanesthesia recovery unit in stable condition. There were no complications. DICTATING PHYSICIAN: ALEX PASTRANA D.O. [id number] PHY#: [id number] ID: [id number] JOB#: [id number] ACCT: [id number] cc:ALEX PASTRANA D.O. >
== END 2019-01-30 15:12 | disposition home or self-care (01) ==
LOC: SC 07:43
PROVIDERS: ATTEND Otolaryngology
DX: J32.9 Chronic sinusitis, unspecified (principal); J01.90 Acute sinusitis, unspecified; J33.8 Other polyp of sinus; J34.2 Deviated nasal septum; J34.3 Hypertrophy of nasal turbinates; R06.09 Other forms of dyspnea; R09.82 Postnasal drip; J34.89 Other specified disorders of nose and nasal sinuses; H69.83 Other specified disorders of Eustachian tube, bilateral; G43.909 Migraine, unspecified, not intractable, without status migrainosus; J35.2 Hypertrophy of adenoids; M27.0 Developmental disorders of jaws; Z87.891 Personal history of nicotine dependence
CPT/HCPCS: 88305 ×2; 00160; 30140; 30520; 42831; 31240; 31256; 31254; 69799; 31237; 31297; J2250; J3490 ×5; J3010; J2270; J0330; J2405; J2704; J1100; J0690; 160

== ENCOUNTER 2019-05-23 12:44 | Emergency (ER) | payer OTHER, MEDICAID ==
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
--- NOTE | 2019-05-23 14:03 | RADIOLOGY REPORT (SQ) ---
EXAM DESCRIPTION: CHEST 2 VIEWS COMPLETED DATE/TIME: 05/23/2019 1:53 pm REASON FOR STUDY: Short of breath difficulty breathing since yesterd COMPARISON: 07/05/2015. EXAM PARAMETERS: NUMBER OF VIEWS: two views TECHNIQUE: Digital Frontal and Lateral radiographic views of the chest acquired. RADIATION DOSE: NA LIMITATIONS: none FINDINGS: LUNGS AND PLEURA: No opacities, masses or pneumothorax. No pleural effusion. MEDIASTINUM AND HILAR STRUCTURES: No masses or contour abnormalities. HEART AND VASCULAR STRUCTURES: Heart normal size. No evidence for failure. BONES: No acute findings. HARDWARE: None in the chest. OTHER: No other significant finding. IMPRESSION: NO ACUTE RADIOGRAPHIC FINDING IN THE CHEST. TECHNICAL DOCUMENTATION: JOB ID: [id number] [employer]- All Rights Reserved Reading location - IP/workstation name: [email or web address]
[2019-05-23 15:09] LABS: ABSOLUTE BASOPHILS # (AUTO) 0.1 10^3/uL (0.0-0.2); ABSOLUTE EOSINOPHILS # (AUTO) 0.6 10^3/uL (0.0-0.6); ABSOLUTE LYMPHOCYTES (AUTO) 2.8 10^3/uL (0.5-4.7); ABSOLUTE MONOCYTES (AUTO) 0.7 10^3/uL (0.1-1.4); ABSOLUTE NEUT (AUTO) 6.1 10^3/uL (1.7-8.2); BASOPHILS % (AUTO) 0.9 % (0-2); EOSINOPHILS % (AUTO) 6.2 % (0-6); HEMATOCRIT 43.6 % (37.9-51.0); HEMOGLOBIN 15.2 g/dL (13.5-17.0); MEAN CORPUSCULAR HEMOGLOBIN 30.4 pg (27.0-33.4); MEAN CORPUSCULAR HGB CONC 34.9 g/dL (32.0-36.0); MEAN CORPUSCULAR VOLUME 87 fl (80-97); MONOCYTES % (AUTO) 7.1 % (3-13); PLATELET COUNT 319 10^3/uL (150-450); RED BLOOD COUNT 5.01 10^6/uL (4.35-5.55); RED CELL DISTRIBUTION WIDTH 13.4 % (11.5-14.0); SEGMENTED NEUTROPHILS % (AUTO) 58.8 % (42-78); TOTAL CELLS COUNTED % (AUTO) 100 %; WHITE BLOOD COUNT 10.4 10^3/uL (4.0-10.5)
[2019-05-23 15:16] LABS: APPEARANCE,URINE CLEAR; BILIRUBIN,URINE NEGATIVE (NEGATIVE); COLOR,URINE STRAW; GLUCOSE, URINE NEGATIVE (NEGATIVE); KETONES,URINE NEGATIVE (NEGATIVE); LEUKOCYTE ESTERASE,URINE NEGATIVE (NEGATIVE); NITRITE,URINE NEGATIVE (NEGATIVE); PROTEIN,URINE NEGATIVE (NEGATIVE); URINE SPECIFIC GRAVITY 1.005; UROBILINOGEN,URINE NEGATIVE mg/dL (<2.0)
[2019-05-23] MEDS ORDERED: IPRATROPIUM/ALBUTEROL 0.5-2.5 MG/3 ML AMPUL NEB ONE (15:26)
[2019-05-23] MEDS ORDERED: PREDNISONE 20 MG TABLET PO ONE (15:26)
[2019-05-23 15:30] LABS: ALBUMIN 4.4 g/dL (3.5-5.0); ALKALINE PHOSPHATASE 74 U/L (38-126); ANION GAP 7 (5-19); ASPARTATE AMINO TRANSFERASE 29 U/L (17-59); BILIRUBIN,DIRECT 0.1 mg/dL (0.0-0.4); BILIRUBIN,TOTAL 0.8 mg/dL (0.2-1.3); BLOOD UREA NITROGEN 7 mg/dL (7-20); CALCIUM 9.7 mg/dL (8.4-10.2); CARBON DIOXIDE 29 mmol/L (22-30); CHLORIDE 103 mmol/L (98-107); CREATINE KINASE 180 U/L (55-170); GLUCOSE 90 mg/dL (75-110); POTASSIUM 4.4 mmol/L (3.6-5.0); TOTAL PROTEIN 7.4 g/dL (6.3-8.2)
[2019-05-23 15:31] LABS: URINE AMPHETAMINES SCREEN NEGATIVE; URINE BARBITURATES SCREEN NEGATIVE; URINE BENZODIAZEPINES SCREEN NEGATIVE; URINE COCAINE SCREEN NEGATIVE; URINE MARIJUANA (THC) SCREEN NEGATIVE; URINE METHADONE SCREEN NEGATIVE; URINE PHENCYCLIDINE SCREEN NEGATIVE
--- NOTE | 2019-05-23 15:49 | ER Document Report ---
ED Respiratory Problem - General Chief Complaint: Breathing Difficulty Stated Complaint: DIFFICULTY BREATHING/DRY COUGH Time Seen by Provider: 05/23/19 13:30 Primary Care Provider: MEG CARDOZO [NO LOCAL MD] - Follow up as needed Mode of Arrival: Ambulatory TRAVEL OUTSIDE OF THE [place] IN LAST 30 DAYS: No - HPI Notes: This is a 28-year-old gentleman who presents today with a complaint of a dry cough, wheezing and congestion that started earlier today after doing some work in the attic. He denies any fever or chills. He denies any chest pain. He describes his symptoms as mild. - Related Data Allergies/Adverse Reactions: cat dander Allergy (Verified 05/23/19 13:27) dog dander Allergy (Verified 05/23/19 13:27) grass pollen Allergy (Verified 05/23/19 13:27) mold Allergy (Verified 05/23/19 13:27) pollen extracts Allergy (Verified 05/23/19 13:27) dust Allergy (Uncoded 05/23/19 13:27) sun Allergy (Uncoded 05/23/19 13:27) trees Allergy (Uncoded 05/23/19 13:27) Past Medical History - General Information source: Patient - Social History Smoking Status: Former Smoker Chew tobacco use (# tins/day): No Frequency of alcohol use: None Drug Abuse: None Family History: Reviewed & Not Pertinent Patient has suicidal ideation: No Patient has homicidal ideation: No - Past Medical History Cardiac Medical History: Denies: Hx Heart Attack, Hx Hypertension Pulmonary Medical History: Denies: Hx Asthma Neurological Medical History: Denies: Hx Cerebrovascular Accident, Hx Seizures Renal/ Medical History: Denies: Hx Peritoneal Dialysis GI Medical History: Denies: Hx Hepatitis, Hx Hiatal Hernia, Hx Ulcer Psychiatric Medical History: Reports: Hx Anxiety, Hx Post Traumatic Stress Disorder Infectious Medical History: Denies: Hx Hepatitis Past Surgical History: Reports: Hx Nose Surgery, Hx Oral Surgery, Hx Orthopedic Surgery. Denies: Hx Open Heart Surgery, Hx Pacemaker - Immunizations Hx Diphtheria, Pertussis, Tetanus Vaccination: Yes Review of Systems - Review of Systems Constitutional: denies: Fever EENT: denies: Sinus pressure, Sinus discharge Respiratory: Cough, Short of breath, Wheezing. denies: Sputum Gastrointestinal: denies: Abdominal pain, Diarrhea, Nausea, Vomiting -: Yes All other systems reviewed and negative Physical Exam - Vital signs Vitals: Temp Pulse Resp BP Pulse Ox 98.0 F 73 18 123/70 97 05/23/19 13:05 05/23/19 13:05 05/23/19 13:05 05/23/19 13:05 05/23/19 13:05 - General General appearance: Appears well, Alert - HEENT Head: Normocephalic, Atraumatic Eyes: Normal Pupils: PERRL - Respiratory Respiratory status: No respiratory distress Chest status: Nontender Breath sounds: Wheezing - There are occasional faint wheezes appreciated. Chest palpation: Normal - Cardiovascular Rhythm: Regular Heart sounds: Normal auscultation Murmur: No - Abdominal Inspection: Normal Distension: No distension Bowel sounds: Normal Tenderness: Nontender Organomegaly: No organomegaly - Neurological Neuro grossly intact: Yes Cognition: Normal Orientation: AAOx4 [place] Coma Scale Eye Opening: Spontaneous [place] Coma Scale Verbal: Oriented [place] Coma Scale Motor: Obeys Commands [place] Coma Scale Total: 15 Speech: Normal Motor strength normal: LUE, RUE, LLE, RLE Sensory: Normal - Skin Skin Temperature: Warm Skin Moisture: Dry Skin Color: Normal Course - Re-evaluation Re-evalutation: 05/23/19 15:48 Differential diagnosis includes bronchitis versus pneumonia versus bronchospasm. 05/23/19 16:13 Patient reevaluated. Patient is doing well. Good air movement. Labs and x-ray negative. He is stable for discharge. Patient instructions given. - Vital Signs Vital signs: Temp Pulse Resp BP Pulse Ox 98.0 F 73 18 123/70 99 05/23/19 13:05 05/23/19 13:05 05/23/19 13:05 05/23/19 13:05 05/23/19 13:38 - Laboratory Result Diagrams: 05/23/19 14:48 05/23/19 14:48 Laboratory results interpreted by me: 05/23/19 05/23/19 14:48 14:48 Eos % (Auto) 6.2 H Creatine Kinase 180 H - Diagnostic Test Radiology reviewed: Reports reviewed Discharge - Discharge Clinical Impression: Bronchospasm, acute URI (upper respiratory infection) Qualifiers: URI type: unspecified URI Qualified Code(s): J06.9 - Acute upper respiratory infection, unspecified Condition: Good Disposition: HOME, SELF-CARE Instructions: Upper Respiratory Illness ([facility]), Bronchospasm ([facility]) Prescriptions: Prednisone [Deltasone 20 mg Tablet] 3 tab PO DAILY 5 Days #15 tablet Albuterol Sulfate [Proair HFA Inhalation Aerosol 8.5 gm MDI] 2 puff IH Q4H PRN #1 mdi PRN Reason: Referrals: LOCALMD,NO [NO LOCAL MD] - Follow up as needed [facility] [NO LOCAL MD] - Follow up as needed
[2019-05-23 16:18] LABS: CREATINE KINASE MB 1.02 ng/mL (<4.55)
[2019-05-23 16:27] LABS: TROPONIN I < 0.012 ng/mL
[2019-05-23 16:40] VITALS: BP 124/75
== END 2019-05-23 16:30 | disposition home or self-care (01) ==
LOC: ER 12:44
DX: J06.9 Acute upper respiratory infection, unspecified (principal); J98.01 Acute bronchospasm; R06.02 Shortness of breath; R06.2 Wheezing; Z91.048 Other nonmedicinal substance allergy status; Z87.891 Personal history of nicotine dependence
CPT/HCPCS: 94640; 99285; 36415; 82553; 82550; 85025; 80053; 81001; 84484; 80307; 71046; J7512; J7620

== ENCOUNTER 2019-10-02 08:13 | Emergency (ER) | payer OTHER, BC ==
[2019-10-02] MEDS ORDERED: IBUPROFEN 600 MG TABLET PO ONE (09:31)
--- NOTE | 2019-10-02 09:34 | ER Document Report ---
ED GI/ - General Chief Complaint: Groin Injury Stated Complaint: GROIN PAIN Time Seen by Provider: 10/02/19 09:10 Primary Care Provider: JAILYN SHAH [Primary Care Provider] - Follow up as needed Notes: HPI: 29-year-old male who presents today with the acute onset of pain to the right groin with the patient was playing catcher yesterday in a baseball game. He states he got up quickly from a squat position to throw the ball to second base and felt a "pop" to the groin. He denies any pain to any other location. He denies any lower back pain. He denies any radiation of the pain into his testicles or down to his foot. He denies any swelling or discoloration to the leg. ROS: See HPI All other review of systems reviewed and otherwise negative Reviewed vital signs and nursing note as charted by RN. PHYSICAL EXAM: CONSTITUTIONAL: Alert and oriented and responds appropriately to questions. Well-appearing; well-nourished CARD: Regular rate and rhythm; no murmurs; symmetric distal pulses RESP: Normal chest excursion without splinting or tachypnea; breath sounds clear and equal bilaterally ABD/GI: Normal bowel sounds; non-distended; soft, minimally tender only to the very right lower going right above the hip flexion crease without any obvious swelling or bruising : Patient has no obvious inguinal masses, testicular pain or swelling BACK: The back appears normal and is non-tender to palpation EXT: Normal ROM in all joints with some restriction of hip flexion to the right leg secondary to pain. Neurovascularly intact distally with excellent plantar extension and flexion strength with good distal pulses with sensation intact to light touch SKIN: No acute lesions noted NEURO: See above PSYCH: The patient's mood and manner are appropriate. Grooming and personal hygiene are appropriate. TRAVEL OUTSIDE OF THE [place] IN LAST 30 DAYS: No - Related Data Allergies/Adverse Reactions: cat dander Allergy (Verified 05/23/19 13:27) dog dander Allergy (Verified 05/23/19 13:27) grass pollen Allergy (Verified 05/23/19 13:27) mold Allergy (Verified 05/23/19 13:27) pollen extracts Allergy (Verified 05/23/19 13:27) dust Allergy (Uncoded 05/23/19 13:27) sun Allergy (Uncoded 05/23/19 13:27) trees Allergy (Uncoded 05/23/19 13:27) Home Medications: CBD Past Medical History - Social History Smoking Status: Never Smoker Chew tobacco use (# tins/day): No Frequency of alcohol use: None Drug Abuse: None Family History: Reviewed & Not Pertinent Patient has suicidal ideation: No Patient has homicidal ideation: No - Past Medical History Cardiac Medical History: Denies: Hx Heart Attack, Hx Hypertension Pulmonary Medical History: Denies: Hx Asthma Neurological Medical History: Denies: Hx Cerebrovascular Accident, Hx Seizures Renal/ Medical History: Denies: Hx Peritoneal Dialysis GI Medical History: Denies: Hx Hepatitis, Hx Hiatal Hernia, Hx Ulcer Psychiatric Medical History: Reports: Hx Anxiety, Hx Post Traumatic Stress Disorder Infectious Medical History: Denies: Hx Hepatitis Past Surgical History: Reports: Hx Nose Surgery, Hx Oral Surgery, Hx Orthopedic Surgery. Denies: Hx Open Heart Surgery, Hx Pacemaker - Immunizations Hx Diphtheria, Pertussis, Tetanus Vaccination: Yes Physical Exam - Vital signs Vitals: Temp Pulse Resp BP Pulse Ox 98.2 F 95 17 142/85 H 98 10/02/19 08:33 10/02/19 08:33 10/02/19 08:33 10/02/19 08:33 10/02/19 08:33 Course - Re-evaluation Re-evalutation: 10/02/19 09:34 Given the history and physical examination I will perform an x-ray of the right hip to evaluate for the possibility of an avulsion fracture to the superior inferior iliac spine. If this is unremarkable I do believe that the patient most likely will require further outpatient work-up presumably with an MRI of the hip/groin to assess the labrum and musculature attachment sites. Patient did drive here so I will provide Motrin at this time. 10/02/19 10:56 X-ray as recorded. No obvious fractures present. No change in exam. Patient will be discharged home with strict return precautions and follow-up with the primary care provider. - Vital Signs Vital signs: Temp Pulse Resp BP Pulse Ox 98.2 F 95 17 142/85 H 98 10/02/19 08:33 10/02/19 08:33 10/02/19 08:33 10/02/19 08:33 10/02/19 08:33 Discharge - Discharge Clinical Impression: Right groin pain Condition: Fair Disposition: HOME, SELF-CARE Additional Instructions: Come back immediately for any increased pain, change in location or quality of pain, fevers or vomiting, swelling of the leg or groin, or any other acute problems. Please follow-up with orthopedics as we have provided. You may take 600 mg of ibuprofen every 6 hours for the pain and swelling as well as the Pe rcocet as we have sent to the pharmacy for breakthrough pain. Prescriptions: Oxycodone HCl/Acetaminophen [Percocet 5-325 mg Tablet] 1 tab PO ASDIR PRN #15 tablet PRN Reason: [facility]errals: [facility] [Primary Care [facility]] - Follow up as needed ELEANOR ANGUIANO DO [ACTIVE STAFF] - Follow up as needed
--- NOTE | 2019-10-02 10:14 | RADIOLOGY REPORT (SQ) ---
EXAM DESCRIPTION: HIP RIGHT AP/LATERAL COMPLETED DATE/TIME: 10/02/2019 9:49 am REASON FOR STUDY: 12; pain COMPARISON: AP view of the pelvis and a lateral view of the left hip from 10/29/2018. NUMBER OF VIEWS: Two views. TECHNIQUE: AP pelvis and additional frog-leg view of the right hip. LIMITATIONS: None. FINDINGS: MINERALIZATION: Normal. RIGHT HIP: No fracture or dislocation. Stable sclerotic lesion in the femoral neck. LEFT HIP: No fracture or dislocation. PUBIS AND ISCHIUM: The ilioischial and iliopectineal lines are intact. There is no diastasis of the pubic symphysis. PELVIS: No fracture. SACRUM: The sacrum is obscured by overlying bowel. SOFT TISSUES: No findings. OTHER: No other finding. IMPRESSION: No acute osseous abnormality of the right hip. TECHNICAL DOCUMENTATION: JOB ID: [id number] 2010 [employer]- All Rights Reserved Reading location - IP/workstation name: [email or web address]
[2019-10-02 11:22] VITALS: BP 122/76
== END 2019-10-02 11:20 | disposition home or self-care (01) ==
LOC: ER 08:13
DX: R10.31 Right lower quadrant pain (principal)
CPT/HCPCS: 99283

== ENCOUNTER 2020-03-23 08:12 | Emergency (ER) | payer OTHER, BC ==
[2020-03-23 10:15] LABS: APPEARANCE,URINE CLEAR; BILIRUBIN,URINE NEGATIVE (NEGATIVE); COLOR,URINE STRAW; GLUCOSE, URINE NEGATIVE (NEGATIVE); KETONES,URINE NEGATIVE (NEGATIVE); LEUKOCYTE ESTERASE,URINE NEGATIVE (NEGATIVE); NITRITE,URINE NEGATIVE (NEGATIVE); PROTEIN,URINE NEGATIVE (NEGATIVE); URINE SPECIFIC GRAVITY 1.005; UROBILINOGEN,URINE NEGATIVE mg/dL (<2.0)
[2020-03-23 10:22] LABS: ABSOLUTE BASOPHILS # (AUTO) 0.1 10^3/uL (0.0-0.2); ABSOLUTE EOSINOPHILS # (AUTO) 0.5 10^3/uL (0.0-0.6); ABSOLUTE LYMPHOCYTES (AUTO) 2.5 10^3/uL (0.5-4.7); ABSOLUTE MONOCYTES (AUTO) 0.7 10^3/uL (0.1-1.4); ABSOLUTE NEUT (AUTO) 4.1 10^3/uL (1.7-8.2); EOSINOPHILS % (AUTO) 6.8 % (0-6); HEMATOCRIT 43.9 % (37.9-51.0); HEMOGLOBIN 15.3 g/dL (13.5-17.0); LYMPHOCYTES % (AUTO) 31.9 % (13-45); MEAN CORPUSCULAR HGB CONC 34.8 g/dL (32.0-36.0); MEAN CORPUSCULAR VOLUME 89 fl (80-97); MONOCYTES % (AUTO) 8.3 % (3-13); PLATELET COUNT 295 10^3/uL (150-450); RED BLOOD COUNT 4.93 10^6/uL (4.35-5.55); TOTAL CELLS COUNTED % (AUTO) 100 %; WHITE BLOOD COUNT 7.9 10^3/uL (4.0-10.5)
[2020-03-23 10:36] LABS: ALBUMIN 4.7 g/dL (3.5-5.0); ALKALINE PHOSPHATASE 69 U/L (38-126); ASPARTATE AMINO TRANSFERASE 29 U/L (17-59); BILIRUBIN,TOTAL 0.7 mg/dL (0.2-1.3); BLOOD UREA NITROGEN 11 mg/dL (7-20); CALCIUM 9.8 mg/dL (8.4-10.2); GLUCOSE 97 mg/dL (75-110); TOTAL PROTEIN 7.7 g/dL (6.3-8.2)
[2020-03-23 10:42] LABS: ANION GAP 6 (5-19); CARBON DIOXIDE 30 mmol/L (22-30); CHLORIDE 103 mmol/L (98-107)
--- NOTE | 2020-03-23 13:33 | ER Document Report ---
ED General - General Chief Complaint: Numbness Stated Complaint: BODY NUMBNESS Time Seen by Provider: 03/23/20 10:54 Primary Care Provider: IRIS KHANNA MD [Primary Care Provider] - Follow up as needed Notes: 29 y/o male with pmhx of ptsd and solar urticaria presenting today with tingling sensation in her bilateral arms and legs. States it is in no specific distribution. Symptoms started 7 days ago. Symptoms occur when he goes out in the sun and resolve at night when he hasnt been in the sun. States last time th is happened was when he was diagnosed with solar urticaria. He was given steroids and his symptoms resolved. He continues to wear protective clothing. He has not had any muscle weakness. Denies any saddle anesthesia, no loss of bowel or bladder control. States that when he was having intercourse yesterday he had decreased sensation. He denies any fevers, chills or additional symptoms at this time. TRAVEL OUTSIDE OF THE [place] IN LAST 30 DAYS: No - Related Data Allergies/Adverse Reactions: cat dander Allergy (Verified 05/23/19 13:27) dog dander Allergy (Verified 05/23/19 13:27) grass pollen Allergy (Verified 05/23/19 13:27) mold Allergy (Verified 05/23/19 13:27) pollen extracts Allergy (Verified 05/23/19 13:27) dust Allergy (Uncoded 05/23/19 13:27) sun Allergy (Uncoded 05/23/19 13:27) trees Allergy (Uncoded 05/23/19 13:27) Past Medical History - Social History Smoking Status: Current Every Day Smoker Drug Abuse: Marijuana Family History: Reviewed & Not Pertinent Patient has homicidal ideation: No - Past Medical History Cardiac Medical History: Denies: Hx Heart Attack, Hx Hypertension Pulmonary Medical History: Denies: Hx Asthma Neurological Medical History: Denies: Hx Cerebrovascular Accident, Hx Seizures Renal/ Medical History: Denies: Hx Peritoneal Dialysis GI Medical History: Denies: Hx Hepatitis, Hx Hiatal Hernia, Hx Ulcer Psychiatric Medical History: Reports: Hx Anxiety, Hx Post Traumatic Stress Disorder Infectious Medical History: Denies: Hx Hepatitis Past Surgical History: Reports: Hx Nose Surgery, Hx Oral Surgery, Hx Orthopedic Surgery. Denies: Hx Open Heart Surgery, Hx Pacemaker - Immunizations Hx Diphtheria, Pertussis, Tetanus Vaccination: Yes Review of Systems - Review of Systems Constitutional: No symptoms reported EENT: No symptoms reported Cardiovascular: No symptoms reported Respiratory: No symptoms reported Gastrointestinal: No symptoms reported Genitourinary: No symptoms reported Male Genitourinary: No symptoms reported Skin: No symptoms reported Neurological/Psychological: See HPI Physical Exam - Vital signs Vitals: Temp Pulse Resp BP Pulse Ox 98.2 F 83 16 131/78 H 100 03/23/20 08:16 03/23/20 08:16 03/23/20 08:16 03/23/20 08:16 03/23/20 08:16 Interpretation: Bradycardic. No: Tachypneic, Febrile Notes: Adult General: GENERAL: Alert, interacts well. No acute distress HEAD: Normocephalic, atraumatic EYES: Pupils equal, round and reactive to light. Extraocular movements intact. ENT: Airway patent. Nares patent. NECK: Full range of motion. Supple. Trachea midline. No lymphadenopathy. LUNGS: Clear to auscultation bilaterally, no wheezes, rales, or rhonchi. No respiratory distress. Nontender chest wall. HEART: Regular rate and rhythm. No murmurs, rubs or gallops. ABDOMEN: Soft, nontender. Nondistended. (-) Carpenter sign. Bowel sounds present in all 4 quadrants. No rebound, guarding or masses. GENITOURINARY: Deferred EXTREMITIES: Moves all 4 extremities spontaneously. No edema, normal radial and dorsal pedis pulses bilaterally. No cyanosis. BACK: No cervical, thoracic, lumbar midline tenderness. No saddle anesthesia, normal distal neurovascular exam. Moves all extremities with full range of motion. NEUROLOGICAL: Alert and oriented x3. Normal speech. Cranial nerves II through XII grossly intact. Strength 5/ 5 in all extremities. PSYCH: Normal affect, normal mood. SKIN: Warm, dry, normal turgor. No rashes or lesions noted. Course - Re-evaluation Re-evalutation: 03/23/20 13:33 Patients labs and ekg are unremarkable. Patients physical exam is also unremarkable. He is neurologically intact with no weakness and no decreased sensation. I have added a Mg+ and TSH+. Pending those results. Patient is eager to leave as he has an appointment soon. Discussed case with dr. White. agrees with giving him steroid pack and having follow up with his primary care provider. Does not feel MRI is warranted. I am pending the results of the TSH. I discussed this with the patient as he states he has to leave to go to an appointment. As patient was prescribed steroids last time this occurred and they resolved his symptoms, I will go ahead and order a steroid pack for the patient. I discussed with the patient the findings of his lab results and at this time they are unremarkable. I recommend he follows up with his primary care provider for follow up of his symptoms. He may return to the emergency department if he has worsening symptoms or the development of new symptoms. Patient acknowledges and verbalizes understanding of instructions and plan. He is aware we are pending TSH results. All questions answered. TSH has resulted and is wnl. - Vital Signs Vital signs: Temp Pulse Resp BP Pulse Ox 98.8 F 57 L 16 129/71 H 100 03/23/20 13:57 03/23/20 13:57 03/23/20 13:57 03/23/20 13:57 03/23/20 13:57 - Laboratory Result Diagrams: 03/23/20 10:00 03/23/20 10:00 Laboratory results interpreted by me: 03/23/20 10:00 Eos % (Auto) 6.8 H - EKG Interpretation by Me Additional EKG results interpreted by me: 03/23/20 21:46 EKG shows HR 65, SR, W[place] interval of 156, no st segment elevations or depressions Discharge - Discharge Clinical Impression: Tingling Condition: Stable Disposition: HOME, SELF-CARE Additional Instructions: The labs that have come back are unremarkable. I am still pending a TSH. Your ekg is unremarkable. Please take the steroid pack as prescribed. Please follow- up with your primary care provider soon as possible. Return to the emergency department if you have worsening symptoms or development of new symptoms. Prescriptions: Methylprednisolone [Medrol Dosepack (4 mg/Tab) 21 Tab/Dosepak] 4 mg PO ASDIR PRN #21 tab.ds.pk PRN Reason: Referrals: IRIS KHANNA MD [Primary Care Provider] - Follow up as needed
[2020-03-23 14:01] VITALS: BP 129/71
--- NOTE | 2020-03-23 21:06 | EKG REPORT ---
SEVERITY:- NORMAL ECG - SINUS RHYTHM : Confirmed by: Rebecca Coyle MD 23-Mar-2020 21:06:00
== END 2020-03-23 14:01 | disposition home or self-care (01) ==
LOC: ER 08:12
DX: R20.0 Anesthesia of skin (principal); Z88.8 Allergy status to other drugs, medicaments and biological substances; F17.200 Nicotine dependence, unspecified, uncomplicated
CPT/HCPCS: 36415; 80053; 81001; 82962; 83735; 84443; 85025; 93005; 93010; 99284